=== PATIENT | female | born 1990 | race Caucasian/White ===

== ENCOUNTER → 2020-06-19 07:32 | Outpatient (CLI) | payer MEDICAID ==
[2019-03-29 18:03] VITALS: BMI 23.3
[~2020-06-19 07:32] MED LIST: CYCLOBENZAPRINE10 MG PO; HYDROCODONE-APA1 TAB PO; IBUPROFEN600 MG PO; PRENATAL COMPLE1 TAB PO; XANAX1 MG PO
== END | disposition home or self-care (01) ==
LOC: D.US 07:32
PROVIDERS: ATTEND Nurse Practitioner Obstetrics & Gynecology
DX: N63.20 Unspecified lump in the left breast, unspecified quadrant (principal)